=== PATIENT | female | born 2000 | race African-American/Black ===

== ENCOUNTER 2022-10-12 03:19 | Emergency (ER) | payer MEDICAID ==
[~2022-10-12] VITALS: Ht 157.5 cm; Wt 45.4 kg
[2022-10-12 03:58] VITALS: BP 107/67
== END 2022-10-12 07:25 | disposition home or self-care (01) ==
LOC: ER 03:19
DX: Z20.2 Contact with and (suspected) exposure to infections with a predominantly sexual mode of transmission (principal); N93.9 Abnormal uterine and vaginal bleeding, unspecified
CPT/HCPCS: 81025; 99282